=== PATIENT | male | born 1970 | race Caucasian/White ===

== ENCOUNTER 2020-03-09 09:57 | Emergency (ER) | payer MEDICAID ==
[~2020-03-09] VITALS: Ht 180.3 cm; Wt 99.2 kg
--- NOTE | 2020-03-09 11:39 | NUR ---
[employer]: PT TO ROOM FROM [facility]
--- NOTE | 2020-03-09 11:50 | NUR ---
ASSUMED CARE OF PT AT THIS TIME. THIS IS A 31 YO MALE C/O LEFT FA REDNESS/SWELLING/PAIN X A FEW WEEKS. PT FROM [place] AND WAS SEEN IN [place] FOR SAME AND PRESCRIBED KEFLEX W/O IMPROVEMENT. PULSES EQUAL BILATERALLY. PT AO X 4. PT ABLE TO MOVE ALL EXTREMITIES W/O DIFFICULTY. PT ON CONT BP AND O2 MONITORS. CALL LIGHT WITHIN REACH. WILL CONT TO MONITOR PT.
--- NOTE | 2020-03-09 12:02 | NUR ---
REPORT TO JEANNIE HARRELL.
[2020-03-09 12:09] LABS: BASOPHILS # (AUTO) 0.02 x10^3/uL (0-0.1); BASOPHILS % (AUTO) 1 % (0-1); EOSINOPHILS # (AUTO) 0.11 x10^3/uL (0-0.4); EOSINOPHILS % (AUTO) 3 % (1-7); HCT (SEDRATE) 43.5 % (39.2-51.8); LYMPHOCYTES # (AUTO) 1.47 x10^3/uL (1-3.4); LYMPHOCYTES % (AUTO) 34 % (22-44); MD NO; MEAN CORPUSCULAR HEMOGLOBIN 29.8 pg (27.5-34.5); MEAN CORPUSCULAR HGB CONC 33.7 g/dL (33.2-36.2); MEAN PLATELET VOLUME 8.3 fL (7.4-10.4); MONOCYTES # (AUTO) 0.34 x10^3/uL (0.2-0.8); MONOCYTES % (AUTO) 8 % (2-9); NEUTROPHILS # (AUTO) 2.34 x10^3/uL (1.8-6.8); NEUTROPHILS % (AUTO) 55 % (42-75); PLATELET COUNT 278 x10^3/uL (130-400); RED BLOOD COUNT 4.88 x10^6/uL (4.38-5.82)
--- NOTE | 2020-03-09 13:00 | NUR ---
ALL RESULTS ARE BACK AT THIS TIME. CHART UP FOR RECHECK.
[2020-03-09 13:03] VITALS: BP 141/89
--- NOTE | 2020-03-09 13:04 | NUR ---
PT RESTING COMFORTABLY ON GURNEY. ANTONIO.
--- NOTE | 2020-03-09 13:14 | NUR ---
MD AT BEDSIDE TO UPDATE PT ON POC.
== END 2020-03-09 13:26 | disposition home or self-care (01) ==
LOC: EDBD 09:57 → ED 13:20
DX: L03.114 Cellulitis of left upper limb (principal); M79.632 Pain in left forearm
CPT/HCPCS: 36415; 85025; 85651; 99284

== ENCOUNTER 2021-03-17 08:15 | Emergency (ER) | payer MEDICAID ==
[~2021-03-17] VITALS: Ht 175.3 cm; Wt 102.1 kg
[2021-03-17 08:22] VITALS: BP 121/76
--- NOTE | 2021-03-17 08:39 | NUR ---
PT PRESENTS TO ED WITH C/O POISON OAK EXPOSURE 4 DAYS AGO. RASH NOTED TO RIGHT GROIN AREA. PT A&O, RESPS EVEN AND UNLABORED, VSS, NADN. CALL LIGHT IN REACH, NO COMPLAINTS AT THIS TIME.
--- NOTE | 2021-03-17 09:07 | NUR ---
DISCHARGE INSTRUCTIONS REVIEWED, PT EDUCATED ON PRESCRIPTION AND FOLLOW UP, VERBALIZED UNDERSTANDING. AMBULATORY TO DISCHARGE WITH STEADY GAIT. NO COMPLAINTS AT TIME OF DISCHARGE.
== END 2021-03-17 09:09 | disposition home or self-care (01) ==
LOC: ED 08:42
DX: L23.7 Allergic contact dermatitis due to plants, except food (principal)
CPT/HCPCS: 99283